=== PATIENT | female | born 1980 | race Caucasian/White ===

== ENCOUNTER → 2020-08-12 | Outpatient (CLI) | payer BC ==
[~2020-08-12] MED LIST: ASPIR 8181 MG PO; MAGNESIUM CITR100 MG PO; PROBIOTIC1 EAC3 PO; PROTONIX40 M1 PO; VITAMIN D 11000 UNIT PO; VITAMIN D250000 UNIT PO
== END ==
LOC: MAMO 13:56
DX: Z12.31 Encounter for screening mammogram for malignant neoplasm of breast (principal)
CPT/HCPCS: 77063; 77067

== ENCOUNTER → 2020-09-11 | Outpatient (CLI) | payer BC | LOC: US 09-09 10:00 → MAMO 09-09 10:30 | DX: R92.0 Mammographic microcalcification found on diagnostic imaging of breast (principal); R92.8 Other abnormal and inconclusive findings on diagnostic imaging of breast; N64.53 Retraction of nipple | CPT/HCPCS: 76641-LT; 76641-RT; 77065; G0279 ==

== ENCOUNTER → 2021-07-28 | Outpatient (CLI) | payer BC | LOC: KOH-I 11:32 | DX: M25.511 Pain in right shoulder (principal); S43.031A Inferior subluxation of right humerus, initial encounter; M75.31 Calcific tendinitis of right shoulder | CPT/HCPCS: 73030 ==